=== PATIENT | male | born 2000 | race Caucasian/White ===

== ENCOUNTER 2022-09-29 20:29 | Emergency (ER) | payer BC, SELFPAY ==
--- NOTE | ~2022-09-29 | XR_ITS ---
EXAMINATION: XR chest 2V DATE: 09/29/2022 20:53 INDICATION: Chest tightness. Shortness of breath. TECHNIQUE: Frontal and lateral views of the chest were obtained. COMPARISON: None. FINDINGS: There is no pneumonia, pleural effusion, or pneumothorax. The heart size is normal. IMPRESSION: 1. No acute cardiopulmonary disease. Reviewed, dictated and finalized at location E.
[2022-09-29 20:30] VITALS: BP 129/82; PULSE 83; RESP 19; TEMP 36.8; O2SAT 100
--- NOTE | 2022-09-29 20:34 | ECG_ITS ---
Measurements Intervals [place] Rate: 100 P: 81 PA: 134 QRS: 74 QRSD: 106 T: 73 QT: 336 QTc: 435 Interpretive Statements SINUS TACHYCARDIA INCOMPLETE RIGHT BUNDLE BRANCH BLOCK BASELINE ARTIFACT- I, II, AVR, AVL, AVF BORDERLINE ECG NO PREVIOUS ECG AVAILABLE FOR COMPARISON Electronically Signed On 09-30-2022 6:44:23 CDT by Doug Cervantes D.O.
[2022-09-29 21:55] LABS: Basophils Percent Auto 0.5 % (0.2-1.2); Eosinophils Absolute Auto 0.2 K/mm3 (0-0.3); Eosinophils Percent Auto 3.2 % (0-4.4); Hematocrit 42.5 % (42.0-52.0); Hemoglobin 14.3 g/dL (14.0-18.0); Immature Granulocyte Absolute 0.02 K/mm3 (0.00-0.031); Immature Granulocyte Percent A 0.3 % (0-0.5); Lymphocytes Absolute Auto 1.44 K/mm3 (0.9-3.2); Lymphocytes Percent Auto 21.8 % (18.3-44.2); Mean Corpuscular HGB Conc 33.6 g/dl (32-36); Mean Corpuscular Volume 89.3 fl (80-100); Mean Platelet Volume 8.9 fl (7.4-10.4); Monocytes Absolute Auto 0.4 K/mm3 (0.1-0.6); Monocytes Percent Auto 5.5 % (2.6-8.5); Neutrophils Absolute Auto 4.5 K/mm3 (1.3-6.7); Neutrophils Percent Auto 68.7 % (45.5-73.1); Platelet Count Result 199 k/mm3 (150-375); Red Blood Count 4.76 M/mm3 (4.6-6.20); Red Cell Distribution Width 12.7 % (11.5-14.5); White Blood Count 6.6 K/mm3 (4.5-10.0)
[2022-09-29 21:57] LABS: Alanine Aminotransferase 23 U/L (6-50); Albumin Level 4.7 g/dL (3.5-5.1); Alkaline Phosphatase 91 U/L (38-126); Anion Gap 6 mmol/L (8-16); Aspartate Amino Transferase 28 U/L (17-59); Bilirubin,Total 0.4 mg/dL (0.2-1.3); Blood Urea Nitrogen 15 mg/dL (9-20); Calcium 9.1 mg/dL (8.4-10.2); Carbon Dioxide 29 mmol/L (22-30); Chloride 105 mmol/L (98-107); Estimated CRCL calculation 97 ml/min; Estimated Glomerular Filt Rate > 60; Glucose 95 mg/dL (65-110); Lipase 28 U/L (23-300); Potassium 4.4 mmol/L (3.4-5.0); Sodium 140 mmol/L (137-145)
[2022-09-29 21:58] LABS: Prothrombin Time 13.6 Seconds (11.1-14.7)
[2022-09-29 21:59] LABS: Partial Thromboplastin Time 25.8 SECONDS (22.3-36.8)
[2022-09-29 22:09] LABS: Troponin I < 0.012 ng/mL (0.000-0.034)
[2022-09-29 22:21] VITALS: O2SAT 99
[2022-09-29 23:17] VITALS: BP 127/80; PULSE 82; RESP 18; O2SAT 99
--- NOTE | 2022-09-30 02:38 | ED.CHESTPAIN ---
HPI - Chest Pain General Chief Complaint: Chest Pain Stated Complaint: on and off CP x 1 week, coughing up blood Time Seen by Provider: 09/29/22 22:31 History of Present Illness HPI narrative: 22-year-old male states that for the last week or so he has been having intermittent chest pain to his right side that seems to go to his shoulder, with occasional nausea, that starts after he drinks alcohol. He has also been coughing since he stopped smoking. No focal numbness or weakness, no swelling or pain to his legs Related Data Allergies Allergy/AdvReac Type Severity Reaction Status Date / Time No Known Allergies Allergy Mild Verified 04/06/12 17:20 Review of Systems Review of Systems: CONST: No fever. HEENT: No sore throat C/V: Some right-sided chest pain RESP: Cough GI: Occasional nausea and vomiting after he eats/drinks alcohol : No dysuria. M/S: No joint pain. SKIN: No rash. NEURO: [No headache or focal numbness or weakness] PSYCH: [No depression] Exam Narrative: EXAMINATION OF ORGAN SYSTEMS/BODY AREAS: Constitutional: Vital signs per nursing GENERAL:[No acute distress, non-toxic appearing.] HEAD: Normal with no signs of head trauma. EYES: EOMI, conjunctiva normal ENT: Hearing grossly intact LUNGS: Nonlabored breathing. Clear to auscultation bilaterally HEART: [Regular rate and rhythm] ABD: [Soft], [nontender to palpation] EXT: Normal range of motion, no lower extremity edema or tenderness, negative Homans' sign, normal pulses SKIN: [No rashes or lesions.] NEURO: [Alert and oriented x 3. No gross focal sensory or strength deficits.] PSYCH: Normal affect Course Vital Signs Vital signs: Vital Signs Temperature 98.2 F 09/29/22 20:30 Pulse Rate 83 09/29/22 20:30 Respiratory Rate 19 09/29/22 20:30 Blood Pressure 129/82 09/29/22 20:30 Pulse Oximetry 100 09/29/22 20:30 Oxygen Delivery Room Air 09/29/22 20:30 Temperature 98.2 F 09/29/22 20:30 Pulse Rate 82 09/29/22 23:17 Respiratory Rate 18 09/29/22 23:17 Blood Pressure 127/80 09/29/22 23:17 Pulse Oximetry 99 09/29/22 23:17 Oxygen Delivery Room Air 09/29/22 22:21 MDM - Chest Pain MDM Narrative Medical decision making narrative: ED COURSE AND MEDICAL DECISION MAKIN-year-old male presenting with chest pain. EKG done in triage negative for acute ischemic changes. Cardiac workup is initiated. EKG: Performed in triage and interpreted by me. Normal sinus rhythm. Rate 100. Normal axis. OK normal. QRS duration normal. QTc normal. No pathologic Q waves. No ST segment elevation or depression to suggest acute ischemia. No RV strain pattern. HEART score is 0 with no acute ischemic changes on EKG and negative troponin making ACS unlikely. Normal heart rate and oxygenation and no respiratory distress, no DVT symptoms or risk factors, making PE unlikely. Presentation not consistent with dissection or aneurysm without radiation of pain or pulse deficits. CXR negative for mediastinal widening. No abdominal pain or signs of sepsis that would be concerning for esophageal perforation or mediastinitis. No cardiomegaly or JVD to suggest pericardial effusion/tamponade. HEART Score: 0. Given nausea and right-sided pain going to shoulder after drinking, I did consider possible gallbladder etiology, I have instructed patient to follow-up with his doctor for outpatient management as soon as possible for further testing and evaluation. On repeat evaluation just prior to discharge, the patient is no acute distress. He is not having any chest pain at this time. I had a long discussion with the patient and with shared decision making, [he] is comfortable with outpatient management. [He] was given clear return instructions by myself in person as well as on discharge paperwork. Lab Data 09/29/22 21:41 09/29/22 21:41 Labs: Lab Results 09/29/22 Range/Units 21:41 WBC 6.6 (4.5-10.0) K/mm3 RBC
== END 2022-09-29 23:19 | disposition home or self-care (01) ==
PROVIDERS: Emergency Medicine; Emergency Provider Emergency Medicine
DX: R07.9 Chest pain, unspecified (principal)
CPT/HCPCS: 36415; 71046; 80053; 83690; 84484; 85025; 85610; 85730; 93005; 99284